=== PATIENT | male | born 1935 | race Native Hawaiian/Other Pacific Islander ===

== ENCOUNTER 2017-10-15 11:03 | Outpatient (CLI) | payer OTHER ==
[~2017-10-15 11:03] MED LIST: ALLEGRA ALRG180 M1 PO; AMOX500C85 PO; ASA LO-DOSE81 MG PO; FISH OIL1000 MG PO; FLUT0.05 NAS; LEVITRA20 MG PO; METOPROLOL25 M1 PO; MEVACOR40 MG PO; OMEP20CA PO
[2017-10-15 11:15] LABS: PLATELET COUNT 198 K/uL (142-355)
[2017-10-15 13:16] LABS: POTASSIUM 4.3 mmol/L (3.6-5.2); SODIUM 139 mmol/L (136-145)
== END 2017-10-15 12:05 | disposition home or self-care (01) ==
LOC: LAB 11:03
PROVIDERS: Internal Medicine
DX: I10 Essential (primary) hypertension (principal)
CPT/HCPCS: 80053; 80061; 84443; 85027

== ENCOUNTER 2018-02-05 09:26 | Outpatient (CLI) | payer OTHER | END 2018-02-05 20:23 | disposition home or self-care (01) | LOC: LAB 09:26 | DX: K57.90 Diverticulosis of intestine, part unspecified, without perforation or abscess without bleeding (principal); Z12.11 Encounter for screening for malignant neoplasm of colon; K64.8 Other hemorrhoids | CPT/HCPCS: 82272 ==

== ENCOUNTER 2018-02-06 18:26 | Outpatient (CLI) | payer OTHER | END 2018-02-06 19:10 | disposition home or self-care (01) | LOC: LAB 18:26 | DX: Z12.11 Encounter for screening for malignant neoplasm of colon (principal); K57.90 Diverticulosis of intestine, part unspecified, without perforation or abscess without bleeding; K64.8 Other hemorrhoids | CPT/HCPCS: 82272 ==

== ENCOUNTER 2018-02-07 12:34 | Outpatient (CLI) | payer OTHER | END 2018-02-07 21:14 | disposition home or self-care (01) | LOC: LAB 12:34 | DX: K57.90 Diverticulosis of intestine, part unspecified, without perforation or abscess without bleeding (principal); Z12.11 Encounter for screening for malignant neoplasm of colon; L64.8 Other androgenic alopecia | CPT/HCPCS: 82272 ==

== ENCOUNTER 2018-08-31 08:16 | Outpatient (CLI) | payer OTHER ==
[2018-08-31 08:50] LABS: PLATELET COUNT 209 K/uL (142-355)
[2018-08-31 08:57] LABS: POTASSIUM 4.3 mmol/L (3.6-5.2)
== END 2018-08-31 21:18 | disposition home or self-care (01) ==
LOC: LABW 08:16
PROVIDERS: Internal Medicine
DX: G45.9 Transient cerebral ischemic attack, unspecified (principal)
CPT/HCPCS: 36415; 80053; 80061; 85027; 85379; 93306

== ENCOUNTER 2018-10-20 08:02 | Outpatient (CLI) | payer OTHER ==
[2018-10-20 08:18] LABS: PLATELET COUNT 190 K/uL (142-355)
== END 2018-10-20 19:17 | disposition home or self-care (01) ==
LOC: LABW 08:02
PROVIDERS: Internal Medicine
DX: I10 Essential (primary) hypertension (principal); Z00.00 Encounter for general adult medical examination without abnormal findings; Z79.899 Other long term (current) drug therapy
CPT/HCPCS: 36415; 80061; 81000; 84439; 84443; 85027

== ENCOUNTER 2019-02-16 22:31 | Emergency (ER) | payer OTHER ==
[~2019-02-16] VITALS: Ht 177.8 cm; Wt 1022.0 kg
[2019-02-16 23:20] VITALS: BP 155/75; TEMP 97.56
== END 2019-02-16 23:20 | disposition home or self-care (01) ==
LOC: ED 22:31
DX: M26.623 Arthralgia of bilateral temporomandibular joint (principal)
CPT/HCPCS: 96372; 99283; J1885; J2930

== ENCOUNTER 2019-06-30 07:06 | Outpatient (CLI) | payer OTHER ==
[2019-06-30 07:48] LABS: PLATELET COUNT 201 K/uL (142-355)
[2019-06-30 07:55] LABS: POTASSIUM 4.3 mmol/L (3.6-5.2)
== END 2019-06-30 22:29 | disposition home or self-care (01) ==
LOC: LABW 07:06
PROVIDERS: Internal Medicine
DX: G45.8 Other transient cerebral ischemic attacks and related syndromes (principal); Z79.899 Other long term (current) drug therapy; E03.8 Other specified hypothyroidism
CPT/HCPCS: 36415; 80053; 80061; 81000; 84439; 84443; 85027

== ENCOUNTER 2019-07-14 08:47 | Outpatient (CLI) | payer OTHER | END 2019-07-14 21:49 | disposition home or self-care (01) | LOC: LABW 08:47 | DX: G45.8 Other transient cerebral ischemic attacks and related syndromes (principal) | CPT/HCPCS: 36415; 85651; 86038 ==

== ENCOUNTER 2019-07-25 13:57 | Outpatient (CLI) | payer OTHER | END 2019-07-25 23:10 | disposition home or self-care (01) | LOC: US 13:57 | DX: G45.9 Transient cerebral ischemic attack, unspecified (principal) ==

== ENCOUNTER 2019-11-21 09:19 | Outpatient (CLI) | payer OTHER | END 2019-11-21 20:10 | disposition home or self-care (01) | LOC: RAD 09:19 | DX: J40 Bronchitis, not specified as acute or chronic (principal) ==

== ENCOUNTER 2020-02-21 10:29 | Outpatient (CLI) | payer OTHER ==
[2020-02-21 10:57] LABS: PLATELET COUNT 192 K/uL (142-355)
[2020-02-21 11:11] LABS: POTASSIUM 4.2 mmol/L (3.6-5.2)
== END 2020-02-21 22:33 | disposition home or self-care (01) ==
LOC: LAB 10:29
PROVIDERS: Internal Medicine
DX: I10 Essential (primary) hypertension (principal)
CPT/HCPCS: 36415; 80053; 80061; 81000; 84439; 84443; 85027

== ENCOUNTER 2020-04-16 08:36 | Outpatient (CLI) | payer OTHER ==
[2020-04-16 09:52] LABS: PLATELET COUNT 193 K/uL (142-355)
[2020-04-16 10:44] LABS: POTASSIUM 4.3 mmol/L (3.6-5.2)
== END 2020-04-16 22:03 | disposition home or self-care (01) ==
LOC: LABW 08:36
PROVIDERS: Internal Medicine Cardiovascular Disease
DX: Z79.899 Other long term (current) drug therapy (principal)
CPT/HCPCS: 36415; 80053; 80061; 85027

== ENCOUNTER 2020-08-01 07:48 | Outpatient (CLI) | payer OTHER ==
[2020-08-01 08:36] LABS: POTASSIUM 3.9 mmol/L (3.6-5.2)
[2020-08-01 10:13] LABS: PLATELET COUNT 200 K/uL (142-355)
== END 2020-08-01 19:02 | disposition home or self-care (01) ==
LOC: LABW 07:48
PROVIDERS: Internal Medicine
DX: E03.8 Other specified hypothyroidism (principal); I10 Essential (primary) hypertension
CPT/HCPCS: 36415; 80053; 80061; 81000; 84439; 84443; 85027

== ENCOUNTER 2021-01-25 14:55 | Outpatient (CLI) | payer OTHER | END 2021-01-25 21:50 | disposition home or self-care (01) | LOC: RESP 14:55 | PROVIDERS: ATTEND Internal Medicine Cardiovascular Disease | DX: I10 Essential (primary) hypertension (principal) ==

== ENCOUNTER 2021-05-13 14:55 | Emergency (ER) | payer OTHER ==
[~2021-05-13] VITALS: Ht 177.8 cm; Wt 99.8 kg
[2021-05-13 15:05] VITALS: BP 179/87; TEMP 97.6
[2021-05-14] MEDS ORDERED: CLOP75TA2 PO (12:31)
[2021-05-14] MEDS ORDERED: ASA LOW DOSE81 MG PO (12:32)
[2021-05-14] MEDS ORDERED: PRAVASTATIN10 MG PO (12:34)
[2021-05-14] MEDS ORDERED: VALSARTAN160 MG PO (12:36)
[2021-05-14] MEDS ORDERED: PANTOPRAZOLE 40MG TA PO (12:36)
[2021-05-14] MEDS ORDERED: METO-837 PO (12:37)
[2021-05-14] MEDS ORDERED: EUTHYROX50 MCG PO (12:40)
[2021-05-14] MEDS ORDERED: CENTRUM SILVER PO (12:41)
== END 2021-05-13 18:38 | disposition home or self-care (01) ==
LOC: ED 14:55
DX: S00.03XA Contusion of scalp, initial encounter (principal); S00.01XA Abrasion of scalp, initial encounter; W18.39XA Other fall on same level, initial encounter; W22.8XXA Striking against or struck by other objects, initial encounter; Y92.511 Restaurant or cafe as the place of occurrence of the external cause
CPT/HCPCS: 99283

== ENCOUNTER 2021-05-14 08:37 | Observation (INO) | payer OTHER ==
[~2021-05-14] VITALS: Ht 177.8 cm; Wt 103.9 kg
[2021-05-14 08:38] VITALS: BP 190/50; TEMP 99.5
[2021-05-14 09:16] LABS: PLATELET COUNT 196 K/uL (142-355)
[2021-05-14 09:25] VITALS: BP 165/70
[2021-05-14 09:51] LABS: POTASSIUM 4.5 mmol/L (3.6-5.2); SODIUM 140 mmol/L (136-145)
[2021-05-14 10:11] LABS: PARTIAL THROMBOPLASTIN TIME 24.4 SECONDS (24.5-33.6)
[2021-05-14] MEDS ORDERED: CLOP75TA2 PO (12:31)
[2021-05-14] MEDS ORDERED: ASA LOW DOSE81 MG PO (12:32)
[2021-05-14] MEDS ORDERED: PRAVASTATIN10 MG PO (12:34)
[2021-05-14] MEDS ORDERED: PANTOPRAZOLE 40MG TA PO (12:36)
[2021-05-14] MEDS ORDERED: VALSARTAN160 MG PO (12:36)
[2021-05-14] MEDS ORDERED: METO-837 PO (12:37)
[2021-05-14] MEDS ORDERED: EUTHYROX50 MCG PO (12:40)
[2021-05-14] MEDS ORDERED: CENTRUM SILVER PO (12:41)
[2021-05-14 16:00] VITALS: BP 141/60; TEMP 98.1
[2021-05-14 17:36] VITALS: BP 136/70; TEMP 97.7; Ht 177.8 cm; Wt 103.9 kg
[2021-05-15 08:00] VITALS: BP 120/66; TEMP 98.1
== END 2021-05-15 11:03 | disposition home or self-care (01) ==
LOC: ED 08:37 → MED/SURG 11:40
PROVIDERS: Family Medicine; ADMIT Internal Medicine; ATTEND Internal Medicine
DX: R42 Dizziness and giddiness (principal); F07.81 Postconcussional syndrome; Z86.73 Personal history of transient ischemic attack (TIA), and cerebral infarction without residual deficits; E03.8 Other specified hypothyroidism; I10 Essential (primary) hypertension
CPT/HCPCS: 80053; 84484; 85027; 85610; 85730; 87635; 93005; 96374; 99220; 99283; G0378; U0003

== ENCOUNTER 2021-09-03 13:47 | Outpatient (CLI) | payer OTHER ==
[~2021-09-03 13:47] MED LIST changes: +ASA LOW DOSE81 MG PO; +CENTRUM SILVER PO; +CLOP75TA2 PO; +EUTHYROX50 MCG PO; +METO-837 PO; +PANTOPRAZOLE 40MG TA PO; +PRAVASTATIN10 MG PO; +VALSARTAN160 MG PO
== END 2021-09-03 21:21 | disposition home or self-care (01) ==
LOC: US 13:47
PROVIDERS: ATTEND Internal Medicine Cardiovascular Disease
DX: R09.89 Other specified symptoms and signs involving the circulatory and respiratory systems (principal)

== ENCOUNTER 2021-09-18 11:24 | Outpatient (CLI) | payer OTHER ==
[2021-09-18 11:52] LABS: PLATELET COUNT 218 K/uL (142-355)
[2021-09-18 12:36] LABS: POTASSIUM 4.6 mmol/L (3.6-5.2)
== END 2021-09-18 20:39 | disposition home or self-care (01) ==
LOC: LAB 11:24
PROVIDERS: ATTEND Internal Medicine
DX: Z00.00 Encounter for general adult medical examination without abnormal findings (principal); E03.8 Other specified hypothyroidism; I10 Essential (primary) hypertension
CPT/HCPCS: 80053; 80061; 81000; 84439; 84443; 85027

== ENCOUNTER 2022-03-22 12:54 | Emergency (ER) | payer OTHER ==
[~2022-03-22] VITALS: Ht 177.8 cm; Wt 103.9 kg
[2022-03-22 13:07] VITALS: TEMP 97
[2022-03-22 14:14] LABS: POTASSIUM 3.9 mmol/L (3.6-5.2)
[2022-03-22 14:17] LABS: PLATELET COUNT 148 K/uL (142-355)
[2022-03-22 14:50] VITALS: BP 110/66
== END 2022-03-22 14:51 | disposition home or self-care (01) ==
LOC: ED 12:54
PROVIDERS: Emergency Medicine
DX: J06.9 Acute upper respiratory infection, unspecified (principal); U07.1 COVID-19
CPT/HCPCS: 36415; 80048; 85027; 87635; 87651; 96372; 99283; J1100; J3490; U0003

== ENCOUNTER 2022-06-13 07:38 | Outpatient (CLI) | payer OTHER ==
[2022-06-13 07:54] LABS: PLATELET COUNT 193 K/uL (142-355)
[2022-06-13 09:07] LABS: POTASSIUM 4.2 mmol/L (3.6-5.2)
== END 2022-06-13 18:55 | disposition home or self-care (01) ==
LOC: LABW 07:38
PROVIDERS: ATTEND Internal Medicine
DX: I10 Essential (primary) hypertension (principal); E03.8 Other specified hypothyroidism
CPT/HCPCS: 36415; 80053; 80061; 81002; 84439; 84443; 85027

== ENCOUNTER 2022-07-16 08:52 | Outpatient (CLI) | payer OTHER | END 2022-07-16 18:48 | disposition home or self-care (01) | LOC: RESP 08:52 | PROVIDERS: ATTEND Specialist | DX: I10 Essential (primary) hypertension (principal); G45.9 Transient cerebral ischemic attack, unspecified; E78.2 Mixed hyperlipidemia; Z86.79 Personal history of other diseases of the circulatory system; Z09 Encounter for follow-up examination after completed treatment for conditions other than malignant neoplasm | CPT/HCPCS: 93225 ==